=== PATIENT | male | born 1995 | race Caucasian/White ===

== ENCOUNTER 2018-01-24 16:37 | Emergency (ER) | payer BC, OTHER ==
[2018-01-24 17:09] VITALS: BP 130/72
--- NOTE | 2018-01-24 17:29 | EDM.PDOC ---
ED HPI GENERAL MEDICAL PROBLEM - General Chief Complaint: Upper Extremity Injury/Pain Stated Complaint: left shoulder dislocation Time Seen by Provider: 01/24/18 16:55 Source of Information: Reports: Patient History Limitations: Reports: No Limitations - History of Present Illness INITIAL COMMENTS - FREE TEXT/NARRATIVE: Luciano is a 22 yo male who presents to the ER with concerns that his shoulder is out of place. States he was out ice fishing and while they were setting up the ice house he felt his shoulder dislocate. Admits this has happened to him in the past and did see orthopedics as well. It was recommended he follow up in a few weeks but admits he never did as he thought it was fine. He denies any numbness in his fingers. States the pain isn't that bad as long as he isn't moving his arm. Location: Reports: Upper Extremity, Left Improves with: Reports: Immobilization Worsens with: Reports: Movement Context: Reports: Lifting Associated Symptoms: Reports: Diaphoresis Left Shoulder Pain Score (Numeric/FACES): 6 - Related Data Allergies Allergy/AdvReac Type Severity Reaction Status Date / Time No Known Allergies Allergy Verified 01/24/18 16:38 Home Meds: Home Meds . [No Known Home Meds] 09/28/15 [History] Past Medical History - Past Health History Medical/Surgical History: Denies Medical/Surgical History Musculoskeletal History: Reports: Other (See Below) Other Musculoskeletal History: dislocated same shoulder about 6 months ago Social & Family History - Tobacco Use Smoking Status *Q: Never Smoker Used Tobacco, but Quit: No - Recreational Drug Use Recreational Drug Use: No Review of Systems - Review of Systems Review Of Systems: ROS reveals no pertinent complaints other than HPI. ED EXAM, GENERAL - Physical Exam Exam: See Below Extremities: Normal Capillary Refill, Arm Pain, Limited Range of Motion, Other ( obvious posturing with guarding of left arm. Arm is held in adduction with internal rotation of forearm. Distal digits intact. Hand story editor strength appropriate. ) Neurological: Alert, Oriented, Normal Cognition, No Motor/Sensory Deficits Psychiatric: Normal Affect, Normal Mood Skin Exam: Diaphoretic ED TRAUMA EXTREMITY PROCEDURES - Joint Reduction Site: Shoulder (L) Pre-Procedure NV Status: Normal Post-Procedure NV Status: Normal Technique: Traction/Counter Traction Number of Attempts: 2 Post-Reduction Imaging: Completely Reduced Joint Reduction Complications: No Course - Vital Signs Last Recorded V/S: Last Vital Signs Temp 97.0 F 01/24/18 16:37 Pulse 72 01/24/18 16:37 Resp 16 01/24/18 16:37 BP 130/72 01/24/18 16:37 Pulse Ox 99 01/24/18 16:37 - Orders/Labs/Meds Orders: Active Orders 24 hr Category Date Time Status Shoulder 1V Lt [CR] Stat Exams 01/24/18 16:40 Taken Shoulder Comp Lt [CR] Stat Exams 01/24/18 17:02 Taken Departure - Departure Time of Disposition: 17:30 Disposition: Home, Self-Care 01 Clinical Impression: Dislocation of shoulder, left, closed Qualifiers: Encounter type: initial encounter Qualified Code(s): S43.005A - Unspecified dislocation of left shoulder joint, initial encounter - Discharge Information Instructions: Shoulder Dislocation, [id number] Referrals: Provider,Unknown [Primary Care Provider] - Forms: ED Department Discharge Additional Instructions: 1) Return to ER if any cold or loss of sensation in left arm, cannot move the arm or becomes dislocated again. 2) May take Tylenol and ibuprofen as directed on bottles for discomfort 3) Recommend seeing orthopedics for further evaluation in regards to recurrent dislocations. 4) If any questions or concerns, may call us at [phone] - Problem List & Annotations (1) Dislocation of shoulder, left, closed SNOMED Code(s): 39322658 Code(s): S43.005A - UNSPECIFIED DISLOCATION OF LEFT SHOULDER JOINT, INIT ENCNTR Status: Acute Current Visit: Yes Qualifiers: Encounter type: initial encounter Qualified Code(s): S43.005A - Unspecified dislocation of left shoulder joint, initial encounter - Problem List Review Problem List Initiated/Reviewed/Updated: Yes - My Orders Last 24 Hours: My Active Orders 01/24/18 16:40 Shoulder 1V Lt [CR] Stat 01/24/18 17:02 Shoulder Comp Lt [CR] Stat - Assessment/Plan Last 24 Hours: My Active Orders 01/24/18 16:40 Shoulder 1V Lt [CR] Stat 01/24/18 17:02 Shoulder Comp Lt [CR] Stat Plan: Discussed findings with Luciano and reduction procedure. He advised he did not want any sedation or pain control medications. He asked that we proceed with reducing presently. We were able to fairly easily reduce the shoulder without any complications. Recommended he wear arm sling that was applied and follow up with orthopedics in [place] for further evaluation, secondary to recurrent dislocation.
== END 2018-01-24 17:30 | disposition home or self-care (01) ==
LOC: CC.ED 16:37
DX: S43.005A Unspecified dislocation of left shoulder joint, initial encounter (principal); X50.0XXA Overexertion from strenuous movement or load, initial encounter; Y92.009 Unspecified place in unspecified non-institutional (private) residence as the place of occurrence of the external cause
CPT/HCPCS: 23650; 73020-LT; 73030-LT; 99283